=== PATIENT | male | born 1995 | race Caucasian/White ===

== ENCOUNTER 2016-06-04 23:17 | Emergency (ER) | payer BC ==
--- NOTE | ~2016-06-04 | ER ---
PATIENT'S NAME: INDU BOYD [facility] AGE: 20 Y [address] ROOM: [place] [address] LOCATION: [facility] ADMIT DATE: 06/04/2016 ER/Outpatient Report DISCHARGE DATE: 06/05/2016 FAMILY PHYSICIAN: PHYSICIAN, NO ATTENDING PHYSICIAN: Carlos Abbasi Admission date and time documented in the medical record. I saw the patient at 2340 hours. CHIEF COMPLAINT: Pain post tooth extraction. HISTORY OF PRESENT ILLNESS: The patient is a 20-year-old male, who has pain in his left lower jaw area. He had a left lower wisdom tooth extracted this past Sunday. He has had increased pain tonight. He has taken oral Percocet and is not helping. Low- grade fever, temperature 99.5. No chills or sweats. No chest pain or shortness of breath. No abdominal pain, nausea, vomiting, diarrhea, or urinary complaints. No lightheadedness, dizziness, syncope, or near syncope. No fall or trauma. No recent colds, coughs, flus, fever, chills, or sweats. No headache, eyes, ears, nose, throat, neck, or spine pain. Just the left lower jaw pain. HOME MEDICATIONS: See attached medication list, took his last Percocet at 2230 hours. ALLERGIES: NONE. SOCIAL HISTORY: Occasionally smokes tobacco and occasionally drinks alcohol. SIGNIFICANT PAST MEDICAL HISTORY: Negative. OPERATIONS: Oral surgery. Otherwise none. REVIEW OF SYSTEMS: All systems reviewed by me are negative with exception of those discussed in the history of present illness. PHYSICAL EXAMINATION: VITAL SIGNS: Temperature 99.5, pulse 88, respirations 16, blood pressure 120/70, O2 saturation on room air is 99%. PATIENT'S NAME: INDU BOYD [facility] AGE: 20 Y [address] ROOM: [place] [address] LOCATION: [facility] ADMIT DATE: 06/04/2016 ER/Outpatient Report DISCHARGE DATE: 06/05/2016 FAMILY PHYSICIAN: PHYSICIAN, NO ATTENDING PHYSICIAN: Carlos Abbasi HEENT: Head: Normocephalic. Eyes, Ears, Nose, Throat: Clear. Mucous membranes are moist. Tooth extraction site is not red, no drainage, no bleeding. The jaw is not swollen, tender to palpation. No cervical adenopathy. NEUROVASCULAR: Intact. IMPRESSION: Pain, left lower jaw in the site where his left lower wisdom tooth was extracted 4 days ago. PLAN: The patient was given Decadron 10 mg IM in the emergency room, Toradol 60 mg IM in the emergency room. Discharged home. Observation. Activity as tolerated. Continue present home care Percocet 10/325 one every 4 to 6 hours as needed for pain, #4. Cold packs to jaw intermittently as needed. See oral surgeon in 1-2 days. Followup exam. See personal physician as needed. MD JANI SUAREZ/modl /[id number] d: 06/05/16 0024 t: 06/05/16 0342, OUTPATIENT REPORT
== END 2016-06-05 00:05 | disposition disaster alternative care site (69) ==
LOC: GMED 23:17
DX: K08.89 Other specified disorders of teeth and supporting structures (principal)
CPT/HCPCS: J1100; J1885